=== PATIENT | male | born 1960 | race Caucasian/White ===

== ENCOUNTER 2017-09-25 10:30 | Emergency (ER) | payer SELFPAY ==
[~2017-09-25] VITALS: Ht 182.9 cm; Wt 122.0 kg
[2017-09-25] MEDS ORDERED: gentamicin inj 500 MG in normal saline 100ml IV soln 100 ML IV STA (10:51)
[2017-09-25] MEDS ORDERED: levoFLOXACIN 750MG TABLET PO ONE (10:55)
[2017-09-25] MEDS ORDERED: gentamicin inj 400 MG in normal saline 100ml IV soln 100 ML IV STA (11:00)
[2017-09-25] MEDS ORDERED: LIDOcaine 1.5% w/epinephrine 1:200,000 5ml ampul IJ ONE (11:05)
[2017-09-25] MEDS ORDERED: BACDS PO ×2 (11:59→12:13)
[2017-09-25] MEDS ORDERED: LEVO750T21 PO ×2 (11:59→12:13)
[2017-09-25 12:34] VITALS: BP 148/79
== END 2017-09-25 12:36 | disposition home or self-care (01) ==
LOC: ER 10:32
DX: L03.114 Cellulitis of left upper limb (principal); L02.512 Cutaneous abscess of left hand; E11.9 Type 2 diabetes mellitus without complications; Z88.0 Allergy status to penicillin; Z79.899 Other long term (current) drug therapy
CPT/HCPCS: 26010; 96365; 99284; A6251; A6266; A6449; J1580; J3490; J7030